=== PATIENT | male | born 1980 | race Two or more races ===

== ENCOUNTER 2019-04-15 02:01 | Emergency (ER) | payer SELFPAY ==
[2019-04-15] MEDS ORDERED: KETOROLAC TROMETHAMINE 60 MG/2 ML SDV IM ONE (03:14)
[2019-04-15] MEDS ORDERED: LIDOCAINE 5% (700 MG) TRANSDERMAL ADH..PATCH TP ONE (03:14)
--- NOTE | 2019-04-15 03:15 | ER Document Report ---
HPI - HPI Time Seen by Provider: 04/15/19 03:04 Pain Level: 3 Context: Patient is a 38-year-old male that comes to the emergency department for chief complaint of pain in his left mid back near the ribs. He states that this is been worsening for 2 days, he states it started hurting after he had a bad coughing episode. Patient states that he has had a dry nonproductive cough for a few days now. He denies fevers, shortness of breath, congestion. He admits to smoking. He denies pain in his chest. He denies any daily medications or past medical history. - CONSTITUTIONAL Constitutional: DENIES: Fever, Chills - EENT EENT: REPORTS: Sore Throat. DENIES: Ear Pain, Eye problems - NEURO Neurology: DENIES: Headache, Weakness, Vision blurred, Dizzinesss / Vertigo - CARDIOVASCULAR Cardiovascular: DENIES: Chest pain - RESPIRATORY Respiratory: REPORTS: Coughing. DENIES: Trouble Breathing - GASTROINTESTINAL Gastrointestinal: DENIES: Abdominal Pain, Black / Bloody Stools - URINARY Urinary: DENIES: Dysuria, Urgency, Frequency - REPRODUCTIVE Reproductive: DENIES: : - MUSCULOSKELETAL Musculoskeletal: DENIES: Extremity pain Past Medical History - General Information source: Patient - Social History Smoking Status: Current Some Day Smoker Chew tobacco use (# tins/day): No Frequency of alcohol use: Occasional Drug Abuse: None Lives with: Family Family History: Reviewed & Not Pertinent Patient has suicidal ideation: No Patient has homicidal ideation: No - Medical History Medical History: Negative Surgical Hx: Negative - Immunizations Immunizations up to date: Yes Hx Diphtheria, Pertussis, Tetanus Vaccination: Yes Vertical Provider Document - CONSTITUTIONAL General Appearance: WD/WN, No Apparent Distress - Patient moves with pain but if he is still he is not in distress - INFECTION CONTROL TRAVEL OUTSIDE OF THE [place] IN LAST 30 DAYS: No - HEENT HEENT: Atraumatic, Normocephalic - NECK Neck: Normal Inspection - RESPIRATORY Respiratory: Breath Sounds Normal, No Respiratory Distress - CARDIOVASCULAR Cardiovascular: Regular Rate, Regular Rhythm - GI/ABDOMEN Gastrointestinal: Abdomen Soft, Abdomen Non-Tender - BACK Back: negative: Normal Inspection - Patient has tenderness over the left lower posterior ribs and tight muscle fibers extending up beyond this towards the spine. This is painful with movement and on palpation. No midline tenderness o f the back, no saddle anesthesia, moves all extremities and full range of motion, no signs of trauma - MUSCULOSKELETAL/EXTREMETIES Musculoskeletal/Extremeties: MAEW, FROM, Non-Tender - NEURO Level of Consciousness: Awake, Alert, Appropriate - DERM Integumentary: Warm, Dry, Rash - There is an irritated area just below the left posterior ribs which is erythematous but unremarkable otherwise Course - Re-evaluation Re-evalutation: There is a tiny rash over the left back just inferior to the ribs, patient states he placed tape over the area and pulled it off. He was trying to take the muscle spasm. X-rays negative for acute findings. Patient has pain on palpation and with movement. No signs of concerning trauma or reported trauma, patient states he strained the area. He denies any concerns otherwise. He is requesting management for this, management for his cough. He denies shortness of breath, has no hypoxia or respiratory distress. He will be treated, discussed return precautions in detail, patient states appreciation and agreement. Stable at time of discharge. - Vital Signs Vital signs: Temp Pulse Resp BP Pulse Ox 97.8 F 66 17 113/79 98 04/15/19 02:13 04/15/19 02:13 04/15/19 02:13 04/15/19 02:13 04/15/19 02:13 Discharge - Discharge Clinical Impression: Rib pain on left side, Cough, Muscle spasm Condition: Stable Disposition: HOME, SELF-CARE Additional Instructions: Your lungs are clear. The x-ray appears normal. This does appear to be a muscle spasm in your back. Because of the inflammation in the upper respiratory tract I recommend you take the prednisone as prescribed, take the muscle relaxer as prescribed for your back so you can sleep. You can still take [id number] pain and cough medication. Stop smoking. Follow-up with primary care. Come back if you are worse including difficulty breathing, severe worsening pain, fever, or any other concerning symptoms. Prescriptions: Prednisone [Deltasone 10 mg Tablet] 10 mg PO ASDIR PRN #21 tablet PRN Reason: Cyclobenzaprine HCl [Flexeril 5 mg Tablet] 1 - 2 tab PO TID PRN #15 tablet PRN Reason: Forms: Return to Work
--- NOTE | 2019-04-15 04:05 | RADIOLOGY REPORT (SQ) ---
CLINICAL HISTORY: left back rib pain, pain with breathing COMPARISON: None. TECHNIQUE: XR CHEST 2 VIEWS 04/15/2019 3:13 AM CDT FINDINGS: Cardiac silhouette is normal in size. Lungs are clear without consolidation, atelectasis, mass or edema. There is no pleural effusion. There is no pneumothorax. There are no acute osseous findings. IMPRESSION: Clear lungs.
[2019-04-15 04:51] VITALS: BP 131/64
== END 2019-04-15 04:51 | disposition home or self-care (01) ==
LOC: ER 02:01
DX: R07.81 Pleurodynia (principal); M62.830 Muscle spasm of back; R05 Cough; J02.9 Acute pharyngitis, unspecified; M54.6 Pain in thoracic spine; F17.200 Nicotine dependence, unspecified, uncomplicated
CPT/HCPCS: 71046; J1885; 96372; 99283